=== PATIENT | female | born 1945 | race Caucasian/White ===

== ENCOUNTER 2017-12-25 05:30 | Day surgery (SDC) | payer OTHER ==
[~2017-12-25 05:30] MED LIST: ATORVASTATIN CA20 MG PO; CATAFLAN PO; COZAAR25 MG PO; FARXIGA5 MG PO; FENOFIBRATE48 MG PO; FOSAMAX70 MG PO; MACROBID 100 M100 MG PO; METFORMIN HCL500 MG PO; PANTOPRAZOLE SO40 MG PO; PROTONIX20 MG PO; SYNTHROID125 MCG PO; ULTRACET PO; [UNRECOGNIZED DRUG - OTHER] PO; [UNRECOGNIZED DRUG - OTHER] PO; [UNRECOGNIZED DRUG - OTHER] PO; [UNRECOGNIZED DRUG - OTHER] PO
[2017-12-25] MEDS ORDERED: MACROBID 100 M100 MG PO (09:38)
[2017-12-25] MEDS ORDERED: ULTRACET PO (09:40)
== END 2017-12-25 11:45 | disposition home or self-care (01) ==
LOC: CIR.AMB 05:30
DX: N81.3 Complete uterovaginal prolapse (principal)